=== PATIENT | male | born 1995 ===

== ENCOUNTER 2017-11-22 02:22 | Emergency (ER) | payer SELFPAY ==
--- NOTE | 2017-11-22 03:05 | Emergency Room Report ---
History of Present Illness General Chief Complaint: To Be Triaged Source: Patient Present Illness HPI This patient came in complaining of vomiting blood. After checking and he decided he does not want to be here anymore. He got up and left. I did not see this patient. He was not triaged. Medical Decision Making Status: unchanged Disposition: LEFT W/OUT BEING SEEN Referrals: NOT CHOSEN IPA/,REFERRING (PCP) Hussain Samayoa MD Nov 22, 2017 03:05
== END 2017-11-22 03:00 | disposition left against medical advice (07) ==
LOC: EMR 02:58
DX: K92.0 Hematemesis (principal); Z53.21 Procedure and treatment not carried out due to patient leaving prior to being seen by health care provider